=== PATIENT | female | born 1965 | race Caucasian/White ===

== ENCOUNTER 2019-01-17 21:07 | Emergency (ER) | payer OTHER, SELFPAY ==
[2019-01-17 21:41] VITALS: BP 141/80; PULSE 81; RESP 19; TEMP 36.7; O2SAT 99
--- NOTE | 2019-01-17 21:48 | DI.RAD.S_ITS ---
PROCEDURE: XR CHEST 1V INDICATIONS: chest pain TECHNIQUE: One view of the chest was acquired. COMPARISON: [facility], , CHEST 1 VIEW, 11/27/2013, 8:20. FINDINGS: Surgical changes and devices: None. Lungs and pleura: An incomplete inspiratory result is noted, causing a crowded appearance to the lung markings. No focal infiltrates are seen. No pneumothorax or significant pleural effusions are seen. Mediastinum: Mediastinal contours appear normal. Heart size is normal. Bones and chest wall: No suspicious bony lesions. Overlying soft tissues appear unremarkable. IMPRESSION: Portable chest within normal limits. Note: No significant discrepancy from the preliminary report. Dictated by: Juan Manrique M.D. on 01/18/2019 at 7:28 Approved by: Juan Manrique M.D. on 01/18/2019 at 7:28
--- NOTE | 2019-01-17 22:03 | ED.CHESTPAIN ---
HPI - Chest Pain General Chief Complaint: Chest Pain Stated Complaint: pain under the rib cage Time Seen by Provider: 01/17/19 22:03 Source: patient Mode of arrival: ambulatory Limitations: no limitations History of Present Illness HPI narrative: Patient is a 53-year-old female here for evaluation of left and right-sided upper abdomen/lower chest pain. She states that it was a fairly sudden onset. Lasted approximately 30 minutes with fairly sudden resolution. She has had her gallbladder removed in the past. The time of my evaluation patient was symptom free. She denies any other symptoms associated with it. Does not think that it got worse or better with palpation or movement or breathing. Related Data Allergies Allergy/AdvReac Type Severity Reaction Status Date / Time No Known Drug Allergies Allergy Verified 01/17/19 21:44 Review of Systems Constitutional Denies fever(s) and Denies headache(s) ENT Ears, Nose, Mouth, and Throat: Denies vertigo and Denies headache(s) Cardiovascular Reports chest pain, Denies edema, Denies palpitations and Denies dyspnea Respiratory Denies dyspnea Gastrointestinal Gastrointestinal: Denies abdominal pain, Denies nausea and Denies vomiting Genitourinary Denies dysuria Musculoskeletal Denies myalgias and Denies arthralgias Integumentary/Breasts Denies rash Neurologic Denies vertigo and Denies headache(s) Endocrine Denies palpitations Hematologic/Lymphatic Denies easy bruising FORMERLY [facility] Medical History Healthy adult (Acute) Surgical History History of cholecystectomy (Acute) Social History Smoking Status: Never smoker Social History Smoking Status: Never smoker Exam Initial Vital Signs Initial Vital Signs: Vital Signs Temperature 98.0 F 01/17/19 21:41 Pulse Rate 81 01/17/19 21:41 Respiratory Rate 19 01/17/19 21:41 Blood Pressure 141/80 H 01/17/19 21:41 Pulse Oximetry 99 01/17/19 21:41 Const General: cooperative, healthy appearing, comfortable, well developed, well groomed and No acute distress Orientation: alert, awake and oriented x3 HENMT Head: normal to inspection and normocephalic Resp Effort & Inspection: normal respiratory effort Auscultation: clear to auscultation bilaterally Cardio Rate: regular rate Rhythm: regular rhythm Pulses: radial pulses present GI Inspection: non-distended Palpation: soft and No firm Skin Lesions: no lesions Rashes: no rashes Neuro General: alert, awake and oriented x3 Cognition: normal cognition Speech: speech normal Gait: normal gait Extrem General: normal to inspection and capillary refill normal Psych Appearance: grossly normal and well kempt Scores GCS Byron coma scale eye opening: Spontaneous Annmarie coma scale verbal response: Orientated Byron coma scale motor response: Obey commands Annmarie coma scale total score: 15 HEART Score Heart Score history: Slightly Suspicious Heart Score EKG: Non-Specific repolarization disturbance Heart Score Age: 45-64 years old Heart Score risk factors: No known risk factors Heart Score troponin: < or = to normal limit Heart Score Total: 2 Course Orders Ordered: ED Orders 01/17/19 21:45 EKG-12 Lead Stat 01/17/19 21:48 XR chest 1V Stat 01/17/19 22:04 Complete Blood Count AUTO DIFF Stat Comprehensive Metabolic Panel Stat Lipase Stat Partial Thromboplastin Time Stat Prothrombin Time INR Stat Troponin & CK Cardiac Panel Stat Vital Signs - 8 hr 01/17/19 21:41 01/17/19 22:06 01/17/19 23:00 Temperature 98.0 F Pulse Rate 81 80 77 Respiratory Rate 19 18 15 Blood Pressure 141/80 H Blood Pressure [Left Arm] 134/69 118/66 Pulse Oximetry 99 98 97 01/18/19 00:52 Temperature 98.2 F Pulse Rate 78 Respiratory Rate 22 Blood Pressure 123/92 H Blood Pressure [Left Arm] Pulse Oximetry 96 MDM - Chest Pain Medical Records Data Attestation: I reviewed the patient's medical records. Lab Data Attestation: I reviewed the patient's lab results. Result diagrams: 01/17/19 22:04 01/17/19 22:04 Lab Results 01/17/19 01/17/19 01/17/19 Range/Units 22:04 22:04 22:04 WBC 10.0 (4.5-11.0) X10^3/uL RBC 4.41 (4.0-5.2) X10^6/uL Hgb 14.3 (12.0-16.0) g/dL Hct 42.9 (36-46) % MCV 97.2 (80-100) fL MCH 32.5 (26-34) PG MCHC 33.4 (30-36) % RDW 13.6 (11.6-14.8) % Plt Count 150 (150-400) X10^3/uL Neut % (Auto) 77.7 H (50-75) % Lymph % (Auto) 14.2 L (25-40) % [place] % (Auto) 5.6 (3-14) % Eos % (Auto) 1.4 L (2-4) % Baso % (Auto) 1.1 (0-2) % Neut # (Auto) 7800 H (8031-9784) /uL Lymph # (Auto) 1400 (6048-5525) /uL [place] # (Auto) 600 (0-900) /uL Eos # (Auto) 100 (0-450) /uL Baso # (Auto) 100 (0-100) /uL PT 10.6 (10.1-12.7) SECONDS INR 0.9 (0.9-1.3) APTT 27 (26.4-36.2) SECONDS Sodium 141 (137-145) mmol/L Potassium 3.9 (3.4-5.1) mmol/L Chloride 105 (98-107) mmol/L Carbon Dioxide 24 (22-32) mmol/L BUN 17 (7-17) mg/dL Creatinine 0.80 (0.52-1.04) mg/dL Estimated GFR > 60.0 (>60) mL/min BUN/Creatinine Ratio 21.3 (6-22) Glucose 125 H (70-100) mg/dL Calcium 9.0 (8.4-10.2) mg/dL Total Bilirubin 0.4 (0.2-1.3) mg/dL AST 195 H (14-36) IU/L ALT 137 H (9-52) IU/L Alkaline Phosphatase 116 (38-126) U/L Total Creatine Kinase 84 (30-135) U/L CK-MB (CK-2) TNP CK-MB (CK-2) Rel Index TNP Troponin I < 0.012 (0.01-0.034) ng/mL Total Protein 7.4 (6.3-8.2) g/dL Albumin 4.3 (3.5-5.0) g/dL Globulin 3.1 (1.7-4.1) g/dL Albumin/Globulin Ratio 1.4 (1.0-2.8) Lipase 292 (23-300) U/L Urine Dip Bedside Urine Glucose Negative Bedside Urine Bilirubin - Negative Bedside Urine Ketone - Negative Urine Specific [place] 1.030 Bedside Urine Occult Blood - Negative Bedside Urine pH 5.0 Bedside Urine Protein - Negative Bedside Urine Urobilinogen - Negative Bedside Urine Nitrite - Negative Bedside Urine Leukocytes - Negative Esterase Imaging Data Chest x-ray: Attestation: I personally reviewed and interpreted this imaging study as follows: My impression: No pneumonia, normal size heart, no acute abnormalities ECG Data Attestation: I personally reviewed and interpreted this ECG as follows: Prior ECG tracings: available for review Interpretation: Sinus rhythm Normal axis Normal QRS Ventricular rate is 78 Inverted T-waves V4 V5 V6 Comparison EKG dated 2014 Similar to today's EKG except does not have the inverted T-waves MDM Narrative Medical decision making narrative: Patient asymptomatic the time my evaluation. She is afebrile. Chest x-ray is unremarkable. Does have inverted T-waves laterally on the EKG which are new from an EKG in 2015 however her heart score is 2. Patient is asking to go home. She already has a follow-up appointment scheduled with her primary doctor on Saturday. We did discuss the importance of her talk with her primary doctor about stress test. She was given return precautions. She has had her gallbladder removed and the rest of her abdominal labs are unremarkable. Patient expressed understanding and agreement this plan. Discharge Plan Departure Patient Disposition: Home Clinical Impression: Atypical chest pain Discharge Date/Time: 01/18/19 00:54 Interventions: ED Discharge Assessment Last Done: 01/18/19 00:52 Instructions: DI for Atypical Chest Pain Activity Restrictions/Additional Instructions: Keep your appointment that you have scheduled on Saturday with your primary doctor. Return to the emergency department for any new or worsening symptoms. Discussed with your primary doctor the indications for a referral to have a stress test done.
[2019-01-17 22:06] VITALS: BP 134/69; PULSE 80; RESP 18; O2SAT 98
[2019-01-17 22:18] LABS: Add Manual Diff / Slide Review NO; Basophils Absolute Auto 100 /uL (0-100); Basophils Percent Auto 1.1 % (0-2); Eosinophils Absolute Auto 100 /uL (0-450); Eosinophils Percent Auto 1.4 % (2-4); Hematocrit 42.9 % (36-46); Hemoglobin 14.3 g/dL (12.0-16.0); Lymphocytes Absolute Auto 1400 /uL (1100-4500); Lymphocytes Percent Auto 14.2 % (25-40); Mean Corpuscular HGB Conc 33.4 % (30-36); Mean Corpuscular Hemoglobin 32.5 PG (26-34); Mean Corpuscular Volume 97.2 fL (80-100); Monocytes Absolute Auto 600 /uL (0-900); Monocytes Percent Auto 5.6 % (3-14); Neutrophils Absolute Auto 7800 /uL (1500-7000); Neutrophils Percent Auto 77.7 % (50-75); Platelet Count 150 X10^3/uL (150-400); Red Blood Cell Count 4.41 X10^6/uL (4.0-5.2); Red Cell Distribution Width 13.6 % (11.6-14.8)
[2019-01-17 22:26] LABS: INR 0.9 (0.9-1.3); Prothrombin Time 10.6 SECONDS (10.1-12.7)
[2019-01-17 22:28] LABS: PTT Partial Thromboplastin Tim 27 SECONDS (26.4-36.2)
[2019-01-17 22:32] LABS: Alanine Aminotransferase 137 IU/L (9-52); Albumin 4.3 g/dL (3.5-5.0); Albumin Globulin Ratio 1.4 (1.0-2.8); Alkaline Phosphatase 116 U/L (38-126); Aspartate Aminotransferase 195 IU/L (14-36); BUN Creatinine Ratio 21.3 (6-22); Bilirubin Total 0.4 mg/dL (0.2-1.3); Blood Urea Nitrogen 17 mg/dL (7-17); Carbon Dioxide 24 mmol/L (22-32); Chloride 105 mmol/L (98-107); Creatine Kinase 84 U/L (30-135); Estimated Glomerular Filt Rate > 60.0 mL/min (>60); Globulin 3.1 g/dL (1.7-4.1); Glucose 125 mg/dL (70-100); HEMOLYSIS < 15 (0-50); Lipase 292 U/L (23-300); Potassium 3.9 mmol/L (3.4-5.1); Sodium 141 mmol/L (137-145); Total Protein 7.4 g/dL (6.3-8.2)
[2019-01-17 22:43] LABS: Troponin I < 0.012 ng/mL (0.01-0.034)
[2019-01-17 23:00] VITALS: BP 118/66; PULSE 77; RESP 15; O2SAT 97
[2019-01-18 00:52] VITALS: BP 123/92; PULSE 78; RESP 22; TEMP 36.8; O2SAT 96
== END 2019-01-18 00:54 | disposition home or self-care (01) ==
PROVIDERS: Emergency Provider Emergency Medicine
DX: R07.89 Other chest pain (principal)
CPT/HCPCS: 36591; 71045; 80053; 81003; 82550; 83690; 84484; 85025; 85610; 85730; 93005; 93010; 99283; 99285

== ENCOUNTER 2021-01-01 09:34 | Emergency (ER) | payer OTHER, SELFPAY ==
[2021-01-01 09:40] VITALS: O2SAT 95
[2021-01-01 09:41] VITALS: BP 188/92; PULSE 75; O2SAT 97
[2021-01-01 09:44] VITALS: BP 188/92; PULSE 74; RESP 18; TEMP 37.1; O2SAT 96; BMI 40.9
--- NOTE | 2021-01-01 09:53 | ED_ITS ---
HPI - General Adult General Chief complaint: Ear Stated complaint: SUSPECTS RIGHTSIDE EAR INFECTION Time Seen by Provider: 01/01/21 09:46 Source: patient Mode of arrival: Family Vehicle Limitations: no limitations History of Present Illness HPI narrative: Patient is a 55-year-old female here for evaluation of right- sided ear discomfort. States it has been there for the past 3 or 4 days and worsening over the past 24 hours. She states she has a fullness in the right ear. She does have pain along the right side of her neck. No left ear pain. No vision changes. No sore throat. Related Data Previous Rx's Medication Instructions Recorded ciprofloxacin-dexamethasone 4 drp EAR-RIGHT TID 7 Days #7.5 ml 01/01/21 [Ciprodex] Allergies Allergy/AdvReac Type Severity Reaction Status Date / Time No Known Drug Allergies Allergy Verified 01/17/19 21:44 Review of Systems Constitutional Constitutional: Denies fever(s) and Denies headache(s) Eyes Eyes: Denies change in vision ENT Ears, Nose, Mouth, and Throat: Denies headache(s) and Reports sore throat Comments: Right-sided ear pain Cardiovascular Cardiovascular: Denies chest pain and Denies dyspnea Respiratory Respiratory: Denies dyspnea Gastrointestinal Gastrointestinal: Denies abdominal pain, Denies nausea and Denies vomiting Integumentary/Breasts Skin/Breast: Denies rash Neurologic Neurologic: Denies behavioral changes and Denies headache(s) Psychiatric Psychiatric: Denies behavioral changes Hematologic/Lymphatic On Anticoagulants: No Allergic/Immunologic Allergic/Immunologic: Denies urticaria Patient History Medical History Healthy adult Surgical History History of cholecystectomy Social History Smoking Status: Never smoker Smoking Status: Never smoker alcohol intake frequency: 3 or more drinks per day Substance Use Type: does not use Exam Initial Vital Signs Initial Vital Signs: Vital Signs Temperature 98.8 F 01/01/21 09:44 Pulse Rate 74 01/01/21 09:44 Respiratory Rate 18 01/01/21 09:44 Blood Pressure 188/92 H 01/01/21 09:44 Pulse Oximetry 96 01/01/21 09:44 Const General: cooperative, healthy appearing, comfortable and well developed Limitations: mental status not altered HENIL Head: normal to inspection and normocephalic Ears: TM normal on the right, TM normal on the left and EAC abnormal erythema on the right, edema on the right and EAC tenderness on the right; no foreign body and no otic discharge Nose: external nose normal Throat: posterior oropharynx normal Neck Lymphatic: lymphadenopathy (Right anterior cervical) Resp Effort & Inspection: normal respiratory effort Cardio Rate: regular rate Skin Lesions: no lesions Rashes: no rashes Neuro General: patient alert, patient awake and patient oriented x3 Extrem General: normal to inspection and capillary refill normal Psych Appearance: grossly normal and well kempt Course Vital Signs Vital signs: Vital Signs - 8 hr 01/01/ 09:44 Temperature 98.8 F Pulse Rate 74 Respiratory Rate 18 Blood Pressure 188/92 H Pulse Oximetry 96 Medical Decision Making MDM Narrative Medical decision making narrative: Left-sided here exam unremarkable. Right- sided ear exam consistent with otitis externa. Low suspicion for mastoiditis given her exam. Will place on antibiotic drops. She was given a prescription for this. She was given return precautions and follow-up instructions. She expressed understanding and agreement. Discharge Plan Departure Patient Disposition: Home Clinical Impression: Otitis externa Instructions: How to Instill Ear Drops, DI for Otitis Externa Activity Restrictions/Additional Instructions: Use the antibiotic ear drops as directed. You can continued state Tylenol/ibuprofen for discomfort. Return to the emergency department for any new or worsening symptoms Prescriptions: New ciprofloxacin-dexamethasone [Ciprodex] 0.3-0.1 % drops,suspension 4 drp EAR-RIGHT TID 7 Days Qty: 7.5 RF: 0
[2021-01-01 10:02] VITALS: BP 189/88
--- NOTE | 2021-01-01 11:23 | PC.NURSE ---
dr. phan looked in patient's ear prior to discharge.
== END 2021-01-01 10:02 | disposition home or self-care (01) ==
PROVIDERS: Emergency Provider Emergency Medicine; PCP Family Medicine
DX: H60.91 Unspecified otitis externa, right ear (principal)
CPT/HCPCS: 99281

== ENCOUNTER 2022-05-01 09:21 | Emergency (ER) | payer OTHER, SELFPAY ==
[2022-05-01 09:33] VITALS: BP 227/115; PULSE 70; RESP 18; TEMP 36.7; O2SAT 99; BMI 31.7
--- NOTE | 2022-05-01 09:38 | DI.RAD.S_ITS ---
PROCEDURE: XR FOOT LT MIN 3V INDICATIONS: r/o fx TECHNIQUE: 3 views of the foot were acquired. COMPARISON: None. FINDINGS: Bones: No fractures or dislocations. No suspicious bony lesions. Plantar calcaneal spur. Soft tissues: No tibiotalar joint effusion. Achilles tendon appears normal. IMPRESSION: No evidence acute bony abnormality of the left ankle. If clinical suspicion and/or symptoms persist, further assessment with repeat plain films, or advanced imaging (e.g., CT, MRI, or bone scan) may be helpful for further assessment. Dictated by: Tanvir Hinojosa M.D. on 05/01/2022 at 10:05 Approved by: Tanvir Hinojosa M.D. on 05/01/2022 at 10:06
--- NOTE | 2022-05-01 10:09 | ED_ITS ---
HPI - Extremity Injury (Lower) General Chief Complaint: Extremity Injury, Lower Stated Complaint: fell and injured left foot Time Seen by Provider: 05/01/22 09:57 Source: patient Mode of arrival: Ambulatory History of Present Illness HPI Narrative: This is a 56-year-old female with complaint fall. Patient states she sort of tripped over herself she has an abrasion on the dorsum of her left foot and has pain and swelling of the 4th and 5th toes over the metatarsals on across the dorsum in the area of abrasion. Patient states that she did have a Silveira fracture in the past. This was some time ago it has since healed. Patient states she has some pain with weight-bearing but is able to weightbear. She states her toes were extended backwards when she had her fall. She denies other injuries. She denies any new numbness, tingling or weakness. Denies any other issues or concerns today. Patient states tetanus is up-to-date. Related Data Allergies Allergy/AdvReac Type Severity Reaction Status Date / Time No Known Drug Allergies Allergy Verified 01/17/19 21:44 Review of Systems Review of Systems ROS Unobtainable: All systems reviewed & are unremarkable except as noted in HPI and below Patient History Medical History (Updated 05/01/22 @ 10:34 by Margarita Cruz DO) Healthy adult Surgical History History of cholecystectomy Social History Smoking Status: Never smoker Smoking Status: Never smoker alcohol intake frequency: 3 or more drinks per day Substance Use Type: does not use Exam Narrative Exam Narrative: GENERAL: Alert and oriented x three, mild distress. HEENT: Head normocephalic, atraumatic, EOMI, pupils reactive, face symmetric, moist mucous membranes NECK: Supple, full range of motion EXTREMITIES: Normal range of motion, no clubbing. Patient has ecchymosis of the 5th and 4th digits on the left with some mild ecchymosis on the lateral edge distally, patient has some mild tenderness over the 4th metatarsal. She is nontender over the 5th metatarsal with no other bony tenderness appreciated. She has normal plantar dorsiflexion. Patient has 2.5 cm irregular abrasion over the dorsum of the foot. No warmth, erythema or drainage is appreciated. Patient has 2+ dorsalis pedis with cap refill less than 2 seconds in all 5 toes. Neurovascularly intact NEUROLOGICAL: Cranial nerves II through XII grossly intact. Moving all extremities SKIN: Warm, dry, no petechiae, no rashes or lesions otherwise noted. Initial Vital Signs Initial Vital Signs: Vital Signs Temperature 98.1 F 05/01/22 09:33 Pulse Rate 70 05/01/22 09:33 Respiratory Rate 18 05/01/22 09:33 Blood Pressure 227/115 H 05/01/22 09:33 Pulse Oximetry 99 05/01/22 09:33 Oxygen Delivery Method 05/01/22 09:33 Course Orders Ordered: ED Orders 05/01/22 09:30 COVID19 -Nasal RAPID/Pre-Proc Stat 05/01/22 09:38 XR foot LT min 3V Stat Vital Signs Vital signs: Vital Signs - 8 hr 05/01/22 09:33 Temperature 98.1 F Pulse Rate 70 Respiratory Rate 18 Blood Pressure 227/115 H Pulse Oximetry 99 Oxygen Delivery Method Room Air MDM - Extremity Injury (Lower) Lab Data Labs: Lab Results 05/01/22 Range/Units 09:30 SARS-CoV-2 (PCR) Negative (Negative) Imaging Data Extremity x-ray #1: Radiologist's Impression: [address] [address] XRay Report Signed Patient: Tracie Cintron MR#: [id number] : 1965 Acct:[id number] Age/Sex: 56 / F Date of Service: 05/01/22 Loc: ED Accession Number: [id number] ?? Procedure: XR foot LT min 3V Ordering Provider: Margarita Cruz D.O. PROCEDURE:? XR FOOT LT MIN 3V ? INDICATIONS:? r/o fx ? TECHNIQUE:? 3 views of the foot were acquired.? ? COMPARISON:? None. ? FINDINGS:? ? Bones:? No fractures or dislocations.? No suspicious bony lesions.? Plantar calcaneal spur. ? Soft tissues:? No tibiotalar joint effusion.? Achilles tendon appears normal.? ? ? IMPRESSION:? No evidence acute bony abnormality of the left ankle. ? If clinical suspicion and/or symptoms persist, further assessment with repeat plain films, or advanced imaging (e.g., CT, MRI, or bone scan) may be helpful for further assessment. ? Dictated by: Tanvir Hinojosa M.D. on 05/01/2022 at 10:05 ? ? Approved by: Tanvir Hinojosa M.D. on 05/01/2022 at 10:06?? MDM Narrative Medical decision making narrative: This is a 56-year-old female with abrasion and ecchymosis over the dorsum of her foot and toes. Patient had a trip and fall, she is able to weightbear although has some discomfort. X-ray does not show acute changes. Patient defers any splint or crutches. Plan for repeat imaging in 7-10 days if persistent symptoms and wound care for abrasion on her foot. Discharge Plan Departure Patient Disposition: Home Clinical Impression: Abrasion foot/toe, Contusion of foot Instructions: DI for Foot Sprain Activity Restrictions/Additional Instructions: Please follow-up in 7-10 days for repeat evaluation and possibly imaging if your symptoms are not improving. Your imaging today does not show any signs of fracture or breaks to the bone. Wound Care: Keep wound(s) clean and dry. Wash daily with soap and water only. Do not use over the counter products (alcohol or peroxide)on the wounds unless instructed by a physician, you can use triple antibiotic ointment to the affected area twice daily. You may weightbear as tolerated OK to use ice pack on the affected body part. Use for 15-20 minutes each time, for 5-6x per day. If you develop worsening pain, numbness, tingling, discoloration of the affected body part, fevers, redness or purulent discharge either see your doctor for an urgent re-assessment, or return to the Emergency Department. Return to the Emergency Department for any new or worsening symptoms. Referrals: Harman Webster MD [Primary Care Provider] - Visit Report Forms: Patient Portal/API
[2022-05-01 10:31] LABS: COVID19 -Nasal RAPID Negative (Negative)
[2022-05-01 10:43] VITALS: BP 184/83; PULSE 67; RESP 18; O2SAT 98
== END 2022-05-01 10:44 | disposition home or self-care (01) ==
PROVIDERS: Emergency Provider Emergency Medicine; PCP Family Medicine
DX: S90.415A Abrasion, left lesser toe(s), initial encounter (principal); S90.32XA Contusion of left foot, initial encounter; W01.0XXA Fall on same level from slipping, tripping and stumbling without subsequent striking against object, initial encounter; Z20.822 Contact with and (suspected) exposure to COVID-19
CPT/HCPCS: 73630; 87635; 99281; 99283; C9803

== ENCOUNTER 2024-08-30 09:30 | Emergency (ER) | payer OTHER, SELFPAY ==
[2024-08-30] VITALS (11 sets, daily range): BP systolic 161–178; BP diastolic 76–109; PULSE 59–71; RESP 14–25; TEMP 36.8; O2SAT 97–99; BMI 33.9
--- NOTE | 2024-08-30 10:42 | EKG_ITS ---
[address] [address] [place] [address] Test Date: 2024-08-30 Pat Name: Tracie Cintron Department: [facility] Room: Gender: Female Cardiothoracic Anesthesia Technician: temo : 1965 Requested By: Order Number: [id number] Reading MD: Cruz Victoria Measurements Intervals [place] Rate: 60 P: 53 KS: 136 QRS: 0 QRSD: 98 T: -11 QT: 464 QTc: 464 Interpretive Statements Normal sinus rhythm Possible Left atrial enlargement Nonspecific T wave abnormality Electronically Signed On 08-31-2024 11:16:41 PST by Cruz Victoria
--- NOTE | 2024-08-30 10:52 | DI.RAD.S_ITS ---
PROCEDURE: XR CHEST 1V INDICATIONS: upper abd pain TECHNIQUE: One view of the chest was acquired. COMPARISON: [facility], CR, XR CHEST 1V, 01/17/2019, 23:01. FINDINGS: Surgical changes and devices: None. Lungs and pleura: Lungs are clear. No pleural effusions or pneumothorax. Mediastinum: Mediastinal contours appear normal. Heart size is normal. Bones and chest wall: No suspicious bony lesions. Overlying soft tissues appear unremarkable. IMPRESSION: No acute cardiopulmonary abnormality is seen. Approved by: Mary Mackenzie M.D.,Ph.D. on 08/30/2024 at 11:35
--- NOTE | 2024-08-30 10:58 | ED_ITS ---
HPI - Abdominal Pain <Tonya Caban PA-C - Last Filed: 08/30/24 20:27> General Chief Complaint: Abdominal Pain Stated Complaint: Upper ABD px nausea vomitting Time Seen by Provider: 08/30/24 10:49 Source: patient Mode of arrival: Ambulatory History of Present Illness HPI narrative: Ms. Cintron is a very pleasant 59-year-old female with a past medical history of cholecystectomy who presents to the emergency department for diffuse abdominal pain and nausea/vomiting since last night around 7:00 p.m. Patient reports experiencing this pain about 1 week ago but it resolved after about 1 hour. Patient states she did have similar symptoms multiple years ago however the pain was more in her chest at that time she was admitted overnight and had a negative cardiac workup. Reports that the pain started after dinner last night however when she had the pain 1 week ago it was in the morning when she had not yet eaten anything. Describes the pain as spastic in nature starting across the top of her abdomen/epigastric region and slowly radiating down the abdomen on both sides. This pain is associated with nausea and she had about 4 episodes of vomiting last night and 1 episode of nonbloody vomiting this morning. States it at this time the pain is lower in the abdomen. Denies fevers, chills, chest pain, shortness of breath, dysuria, hematuria, diarrhea, constipation, melena, hematochezia. She denies any drug use or smoking. She does admit to drinking about a glass of wine every night. Pain significantly improved at this time. Related Data Previous Rx's Medication Instructions Recorded ondansetron 4 mg disintegrating 4 mg PO Q8H PRN nausea and 08/30/24 tablet vomiting #14 tabs Allergies Allergy/AdvReac Type Severity Reaction Status Date / Time No Known Drug Allergies Allergy Verified 01/17/19 21:44 Review of Systems <Tonya Caban PA-C - Last Filed: 08/30/24 20:27> Review of Systems ROS Unobtainable: All systems reviewed & are unremarkable except as noted in HPI and below Patient History <Tonya Caban PA-C - Last Filed: 08/30/24 20:27> Medical History (Updated 08/30/24 @ 15:18 by Tonya Caban PA-C) Healthy adult Surgical History History of cholecystectomy Social History Smoking Status: Never smoker Smoking Status: Never smoker alcohol intake frequency: 3 or more drinks per day Alcohol type: wine Exam <Tonya Caban PA-C - Last Filed: 08/30/24 20:27> Narrative Exam Narrative: GENERAL: 59 year old patient appears stated age. Well-developed patient, in no acute distress. HEAD: Atraumatic. Normocephalic. NECK: Trachea midline. Cervical ROM intact. CARDIOVASCULAR: Regular rate and rhythm. RESPIRATORY: ?Nonlabored respirations. ?Speaking in clear, full sentences. ?Clear to auscultation. Breath sounds equal bilaterally. No wheezes, rales, or rhonchi. ? GASTROINTESTINAL: Abdomen soft, non-tender, nondistended. Normal bowel sounds. No CVA tenderness. EXTREMITIES: No edema or joint tenderness. BACK: Nontender without deformity or crepitance. No flank tenderness. NEURO: AOx3. ?Clear speech. ?Moves all 4 extremities appropriately. SKIN: No rash or erythema of visible areas Initial Vital Signs Initial Vital Signs: Vital Signs Temperature 98.2 F 08/30/24 09:49 Pulse Rate 64 08/30/24 09:49 Respiratory Rate 16 08/30/24 09:49 Pulse Oximetry 99 08/30/24 09:49 Oxygen Delivery Method Room Air 08/30/24 09:49 <Aureliano Castillo MD - Last Filed: 08/30/24 20:32> Initial Vital Signs Initial Vital Signs: Vital Signs Temperature 98.2 F 08/30/24 09:49 Pulse Rate 64 08/30/24 09:49 Respiratory Rate 16 08/30/24 09:49 Pulse Oximetry 99 08/30/24 09:49 Oxygen Delivery Method Room Air 08/30/24 09:49 Scores <Tonya Caban PA-C - Last Filed: 08/30/24 20:27> HEART Score Heart Score history: Slightly Suspicious Heart Score EKG: Normal Heart Score Age: 45-64 years old Heart Score risk factors: 1-2 risk factors Heart Score troponin: < or = to normal limit Heart Score Total: 2 <Aureliano Castillo MD - Last Filed: 08/30/24 20:32> HEART Score Heart Score Total: 2 Course <Tonya Caban PA-C - Last Filed: 08/30/24 20:27> Orders Ordered: ED Orders 08/30/24 12:20 Ammonia (NH3) Stat Troponin I Stat 08/30/24 12:42 MRCP [MR abdomen wo/w con] Stat Discontinued Medications Aspirin (Aspirin 81 Mg Chew Tab) 324 mg PO NOW ONE Stop: 08/30/24 11:08 Last Admin: 08/30/24 11:37 Dose: 324 mg Documented By: EDU Ondansetron HCl (Ondansetron 4 Mg/2 Ml Inj) 4 mg IV NOW ONE Stop: 08/30/24 11:08 Last Admin: 08/30/24 11:37 Dose: 4 mg Documented By: EDU Consultations Consultation #1: Discussed case with general surgeon application spec Dr. Bryan. He states that if the patient does have a common duct stone on MRCP she will need to be transferred somewhere with ERCP. Time: 12:48 Vital Signs Vital signs: Vital Signs - 8 hr 08/30/24 13:35 08/30/24 13:41 08/30/24 13:41 Pulse Rate 71 64 Respiratory Rate 24 Blood Pressure 178/84 H Pulse Oximetry 98 98 Oxygen Delivery Method 08/30/24 14:00 08/30/24 14:30 08/30/24 15:29 Pulse Rate 61 61 60 Respiratory Rate 24 22 14 Blood Pressure 170/76 H Pulse Oximetry 97 98 97 Oxygen Delivery Method Room Air <Aureliano Castillo MD - Last Filed: 08/30/24 20:32> Orders Ordered: ED Orders 08/30/24 12:20 Ammonia (NH3) Stat Troponin I Stat 08/30/24 12:42 MRCP [MR abdomen wo/w con] Stat Discontinued Medications Aspirin (Aspirin 81 Mg Chew Tab) 324 mg PO NOW ONE Stop: 08/30/24 11:08 Last Admin: 08/30/24 11:37 Dose: 324 mg Documented By: EDU Ondansetron HCl (Ondansetron 4 Mg/2 Ml Inj) 4 mg IV NOW ONE Stop: 08/30/24 11:08 Last Admin: 08/30/24 11:37 Dose: 4 mg Documented By: EDU Vital Signs Vital signs: Vital Signs - 8 hr 08/30/24 13:35 08/30/24 13:41 08/30/24 13:41 Pulse Rate 71 64 Respiratory Rate 24 Blood Pressure 178/84 H Pulse Oximetry 98 98 Oxygen Delivery Method 08/30/24 14:00 08/30/24 14:30 08/30/24 15:29 Pulse Rate 61 61 60 Respiratory Rate 24 22 14 Blood Pressure 170/76 H Pulse Oximetry 97 98 97 Oxygen Delivery Method Room Air MDM - Abdominal Pain <Tonya Caban PA-C - Last Filed: 08/30/24 20:27> Medical Records Attestation: I reviewed the patient's medical records. Lab Data 08/30/24 10:40 08/30/24 10:40 Labs: Lab Results 08/30/24 08/30/24 Range/Units 10:40 12:20 WBC 8.2 (4.5-11.0) X10^3/uL RBC 4.34 (4.0-5.2) X10^6/uL Hgb 14.5 (12.0-16.0) g/dL Hct 43.3 (36-46) % MCV 99.9 (80-100) fL MCH 33.4 (26-34) PG MCHC 33.4 (30-36) % RDW 13.5 (11.6-14.8) % Plt Count 167 (150-400) X10^3/uL Neut % (Auto) 82.0 H (50-75) % Lymph % (Auto) 8.4 L (25-40) % [place] % (Auto) 8.8 (3-14) % Eos % (Auto) 0.4 L (2-4) % Baso % (Auto) 0.4 (0-2) % Neut # (Auto) 6700 (8954-3799) /uL Lymph # (Auto) 700 L (1977-2612) /uL [place] # (Auto) 700 (0-900) /uL Eos # (Auto) 0 (0-450) /uL Baso # (Auto) 0 (0-100) /uL Sodium 138 (137-145) mmol/L Potassium 3.8 (3.4-5.1) mmol/L Chloride 104 (98-107) mmol/L Carbon Dioxide 28 (22-32) mmol/L BUN 11 (7-17) mg/dL Creatinine 0.68 (0.52-1.04) mg/dL Estimated GFR > 60 (>60) mL/min BUN/Creatinine Ratio 16.2 (6-22) Glucose 132 H (80-110) mg/dL Calcium 9.2 (8.4-10.2) mg/dL Total Bilirubin 2.5 H (0.2-1.3) mg/dL AST 691 H (14-36) IU/L ALT 675 H (<35) IU/L Alkaline Phosphatase 189 H (38-126) U/L Ammonia < 9 L (9-30) umol/L Total Creatine Kinase 79 (30-135) U/L Troponin I < 0.012 < 0.012 (0.01-0.034) ng/mL Total Protein 7.2 (6.3-8.2) g/dL Albumin 4.3 (3.5-5.0) g/dL Globulin 2.9 (1.7-4.1) g/dL Albumin/Globulin Ratio 1.5 (1.0-2.8) Lipase 128 (23-300) U/L Point of care testing: Urine Dip Bedside Urine Glucose Negative Bedside Urine Bilirubin - Negative Bedside Urine Ketone - Negative Urine Specific [place] 1.005 Bedside Urine Occult Blood - Negative Bedside Urine pH 6.5 Bedside Urine Protein +/- 15 Bedside Urine Urobilinogen - Negative Bedside Urine Nitrite - Negative Bedside Urine Leukocytes +/- [address] scan - abdomen/pelvis: Radiologist's Impression: PROCEDURE: CT ABDOMEN PELVIS W CON INDICATIONS: diffuse abd pain w vomiting; no gallbladder TECHNIQUE: After the administration of intravenous contrast, axial sections acquired from the lung bases to the pubic symphysis. Coronal and sagittal reformats were performed. For radiation dose reduction, the following was used: automated exposure control, adjustment of mA and/or kV according to patient size. COMPARISON: None. FINDINGS: Image quality: Diagnostic. Lower Chest: No significant findings. ABDOMEN: Liver: No solid mass. Gallbladder: Surgically absent Biliary ducts: No biliary dilation. Pancreas: No ductal dilation. Spleen: Size is within normal limits. Adrenal Glands: No adrenal nodules. Kidneys and Ureters: No hydronephrosis. No solid mass. No complex renal cystic lesion which requires follow up. Nonobstructing left inferior pole 2-3 mm calculus. Stomach and Bowel: Normal colonic caliber, without significant wall thickening. Appendix is not definitively visualized, however there are no inflammatory changes in the right lower quadrant to suggest acute appendicitis. No significant diverticular disease. Peritoneum: No abnormal intraperitoneal fluid. No free air. Ventral Wall: No significant ventral hernia. Abdominal Nodes: No retroperitoneal or mesenteric adenopathy by size criteria. Vessels: Aorta and inferior vena cava are normal in size. PELVIS: Pelvic Organs: The left adnexal simple appearing cystic structure measuring 2.9 cm (2/123) Bladder: No bladder wall thickening, accounting for underdistention. Pelvic Nodes: No enlarged lymph nodes. Miscellaneous: No inguinal hernias are seen. Bones: No aggressive osseous abnormality. IMPRESSION: No acute process in the abdomen or pelvis to explain patient's symptoms. Additional findings as above. MRCP: Radiologist's Impression: PROCEDURE: MR ABDOMEN WO/W CON INDICATIONS: N/V/Elevated LFTs; hx cholecystectomy 2001 TECHNIQUE: Coronal HASTE, axial 2D FLASH in- and [id number]; axial breath-hold T2 FSE. Dynamic axial VIBE during the administration of contrast; post-contrast coronal VIBE or 2D FLASH with fat saturation from the hepatic dome to the iliac crests. Optional diffusion weighted imaging and ADC may be performed. COMPARISON: [facility], CR, XR CHEST 1V, 08/30/2024, 11:02. [facility], CT, CT ABDOMEN PELVIS W CON, 08/30/2024, 11:37. FINDINGS: Image quality: This examination is limited by involuntary motion artifact. Lung bases: Unremarkable. Liver: No solid mass. No enhancing liver lesions are seen. The liver is enlarged, with the right liver measuring 24.5 cm craniocaudal. No significant loss of signal can be seen on the out of phase imaging compared to the in phase imaging. Gallbladder: Removed. Biliary ducts: The common bile duct measures 1 cm, which is considered to be within normal limits for a post cholecystectomy patient. The distal in the common bile duct demonstrates normal tapering, without a filling defect. Pancreas: No ductal dilation. Spleen: Size is within normal limits. Adrenal Glands: No adrenal nodules. Kidneys and Ureters: No hydronephrosis. No solid mass. No complex renal cystic lesion which requires follow up. Stomach and Bowel: Normal colonic caliber, without significant wall thickening. Peritoneum: No abnormal intraperitoneal fluid. No free air. Ventral Wall: No hernia. Abdominal Nodes: No retroperitoneal or mesenteric adenopathy by size criteria. Vessels: Aorta and inferior vena cava are normal in size. Bones: No aggressive osseous abnormality. Scattered foci are seen, which are hyperintense on T1-weighted and T2-weighted imaging, which are most consistent with benign vertebral body hemangiomas. IMPRESSION: Hepatomegaly, without significant additional liver abnormality. Status post cholecystectomy, without biliary dilatation. No filling defects are seen within the bile ducts. ECG Data Interpretation: Reviewed 01/17/2019 ED note which comments on inverted T-waves in V4 V5 V6. ECG today reveals same inversions in V4 and V5. Rate 60 rhythm regular. MDM Narrative Medical decision making narrative: 59-year-old female with a past medical history of cholecystectomy who presents to the emergency department for diffuse abdominal pain and nausea/vomiting since last night around 7:00 p.m. contributes to the history. Differential diagnosis includes but is not limited to gastritis, pancreatitis, electrolyte abnormality, atypical ACS/NV, appendicitis, diverticulitis, irritable bowel syndrome, etc. On exam the patient is in no acute distress, nontoxic-appearing, all vital signs within normal limits. At this time her pain has improved significantly in his only very mild. Abdomen does not have reproducible tenderness but she does have subjective pain throughout the abdomen worse in the epigastric region. We will proceed with abdominal/cardiac workup for possible atypical angina versus abdominal pathology. We will treat with aspirin and Zofran. Labs reveal normal WBC count 8.2. Hemoglobin 14.5. Hematocrit 43.3. Sodium 138, potassium 3.8, chloride 104. BUN 11 creatinine 0.68. Glucose 132. AST elevated 691, ALT elevated 675, alk phos elevated 189. Total bilirubin elevated at 2.5. Troponin negative x 2. heart score 2. ECG NSR rate 60. Lipase neg 128. 1235: CT scan reveals no acute abnormalities. Discussed case with attending ER physician including abnormal labs and patient's symptoms. Recommends proceeding with MRCP which patient is agreeable to. Discussed case with General surgery on-call who agrees with MRCP. MRCP reveals hepatomegaly without significant additional liver abnormality. There is no biliary dilatation and no filling defects. Patient's symptoms remained improved during her ED stay. We did discuss all of the results of her CT scan and her MRCP including incidental finding of adnexal cyst on CT scan. Recommended outpatient follow up with GI for further evaluation of hepatomegaly and transaminitis. Recommended cessation from alcohol, decrease fatty foods in diet. Patient has no history of hepatitis, IV drug use or travel outside the country. She is stable for further outpatient follow up. Abdominal exam benign on serial examinations. She is tolerating p.o. in the ER. She was prescribed Zofran if needed for nausea. We discussed ER return precautions and follow up with PCP. Both her and her verbalized understanding of all information and she is stable for discharge at this time. <Aureliano Castillo MD - Last Filed: 08/30/24 20:32> Lab Data Labs: Lab Results 08/30/24 08/30/24 Range/Units 10:40 12:20 WBC 8.2 (4.5-11.0) X10^3/uL RBC 4.34 (4.0-5.2) X10^6/uL Hgb 14.5 (12.0-16.0) g/dL Hct 43.3 (36-46) % MCV 99.9 (80-100) fL MCH 33.4 (26-34) PG MCHC 33.4 (30-36) % RDW 13.5 (11.6-14.8) % Plt Count 167 (150-400) X10^3/uL Neut % (Auto) 82.0 H (50-75) % Lymph % (Auto) 8.4 L (25-40) % [place] % (Auto) 8.8 (3-14) % Eos % (Auto) 0.4 L (2-4) % Baso % (Auto) 0.4 (0-2) % Neut # (Auto) 6700 (9723-6986) /uL Lymph # (Auto) 700 L (5104-0458) /uL [place] # (Auto) 700 (0-900) /uL Eos # (Auto) 0 (0-450) /uL Baso # (Auto) 0 (0-100) /uL Sodium 138 (137-145) mmol/L Potassium 3.8 (3.4-5.1) mmol/L Chloride 104 (98-107) mmol/L Carbon Dioxide 28 (22-32) mmol/L BUN 11 (7-17) mg/dL Creatinine 0.68 (0.52-1.04) mg/dL Estimated GFR > 60 (>60) mL/min BUN/Creatinine Ratio 16.2 (6-22) Glucose 132 H (80-110) mg/dL Calcium 9.2 (8.4-10.2) mg/dL Total Bilirubin 2.5 H (0.2-1.3) mg/dL AST 691 H (14-36) IU/L ALT 675 H (<35) IU/L Alkaline Phosphatase 189 H (38-126) U/L Ammonia < 9 L (9-30) umol/L Total Creatine Kinase 79 (30-135) U/L Troponin I < 0.012 < 0.012 (0.01-0.034) ng/mL Total Protein 7.2 (6.3-8.2) g/dL Albumin 4.3 (3.5-5.0) g/dL Globulin 2.9 (1.7-4.1) g/dL Albumin/Globulin Ratio 1.5 (1.0-2.8) Lipase 128 (23-300) U/L Point of care testing: Urine Dip Bedside Urine Glucose Negative Bedside Urine Bilirubin - Negative Bedside Urine Ketone - Negative Urine Specific [place] 1.005 Bedside Urine Occult Blood - Negative Bedside Urine pH 6.5 Bedside Urine Protein +/- 15 Bedside Urine Urobilinogen - Negative Bedside Urine Nitrite - Negative Bedside Urine Leukocytes +/- 15 Esterase Discharge Plan Departure Patient Disposition: Home Clinical Impression: Hepatomegaly, Transaminitis, Cyst of left ovary Nausea & vomiting Qualifiers: Vomiting type: unspecified Qualified Code(s): R11.2 - Nausea with vomiting, unspecified Instructions: DI for Nausea -- Adult, DI for Nonalcoholic Fatty Liver Disease Activity Restrictions/Additional Instructions: Dear Ms. Cintron, Today you were evaluated for abdominal pain and nausea and vomiting. He completed cardiac and abdominal lab work, chest x-ray, abdominal CT scan and abdominal MRCP. Your workup revealed elevation in liver enzymes and imaging revealed hepatomegaly which is enlargement of the liver with no blockages in the biliary ducts. It is very important that you follow up with a gastrointestinal doctor for further evaluation. Please avoid alcohol, fatty foods, excessive Tylenol. Please use the prescribed Zofran if needed for nausea. Return to the ER if you develop any new or concerning symptoms. You may call [facility] in [place] at [phone] to schedule an appointment. Please follow up with your primary care doctor within the next 2-3 days for ER follow-up. (If you do not have a PCP you can call [phone]. ?to schedule an appointment with an [facility] Primary Care Provider) IF YOU DEVELOP ANY NEW OR WORSENING SYMPTOMS, RETURN TO THE ER! Please read the attached instructions, they highlight more specific treatments and interventions for you at home. Thank you for letting me participate in your care, Tonya Caban PA-C Prescriptions: New ondansetron 4 mg tablet,disintegrating 4 mg PO Q8H PRN (Reason: nausea and vomiting) Qty: 14 0RF Referrals: Harman Webster MD [Primary Care Provider] - Stand Alone Forms: Patient Portal/API/Survey ED Sign-out <Aureliano Castillo MD - Last Filed: 08/30/24 20:32> Cosign ED Attending Cosignature Attestation: I was immediately available in the department for consultation. This documentation has been reviewed and I agree with assessment and plan. Supervised by Aureliano Castillo MD
[2024-08-30 10:59] LABS: Alanine Aminotransferase 675 IU/L (<35); Albumin 4.3 g/dL (3.5-5.0); Albumin Globulin Ratio 1.5 (1.0-2.8); Alkaline Phosphatase 189 U/L (38-126); Aspartate Aminotransferase 691 IU/L (14-36); BUN Creatinine Ratio 16.2 (6-22); Bilirubin Total 2.5 mg/dL (0.2-1.3); Blood Urea Nitrogen 11 mg/dL (7-17); Calcium 9.2 mg/dL (8.4-10.2); Carbon Dioxide 28 mmol/L (22-32); Chloride 104 mmol/L (98-107); Estimated Glomerular Filt Rate > 60 mL/min (>60); Globulin 2.9 g/dL (1.7-4.1); Glucose 132 mg/dL (80-110); HEMOLYSIS < 15 (0-50); Lipase 128 U/L (23-300); Potassium 3.8 mmol/L (3.4-5.1); Sodium 138 mmol/L (137-145); Total Protein 7.2 g/dL (6.3-8.2)
[2024-08-30 11:03] LABS: Add Manual Diff / Slide Review NO; Basophils Absolute Auto 0 /uL (0-100); Basophils Percent Auto 0.4 % (0-2); Eosinophils Absolute Auto 0 /uL (0-450); Eosinophils Percent Auto 0.4 % (2-4); Hematocrit 43.3 % (36-46); Hemoglobin 14.5 g/dL (12.0-16.0); Lymphocytes Absolute Auto 700 /uL (1100-4500); Lymphocytes Percent Auto 8.4 % (25-40); Mean Corpuscular HGB Conc 33.4 % (30-36); Mean Corpuscular Hemoglobin 33.4 PG (26-34); Mean Corpuscular Volume 99.9 fL (80-100); Monocytes Absolute Auto 700 /uL (0-900); Monocytes Percent Auto 8.8 % (3-14); Neutrophils Absolute Auto 6700 /uL (1500-7000); Platelet Count 167 X10^3/uL (150-400); Red Blood Cell Count 4.34 X10^6/uL (4.0-5.2); Red Cell Distribution Width 13.5 % (11.6-14.8); White Blood Cell Count 8.2 X10^3/uL (4.5-11.0)
--- NOTE | 2024-08-30 11:07 | DI.CT.S_ITS ---
PROCEDURE: CT ABDOMEN PELVIS W CON INDICATIONS: diffuse abd pain w vomiting; no gallbladder TECHNIQUE: After the administration of intravenous contrast, axial sections acquired from the lung bases to the pubic symphysis. Coronal and sagittal reformats were performed. For radiation dose reduction, the following was used: automated exposure control, adjustment of mA and/or kV according to patient size. COMPARISON: None. FINDINGS: Image quality: Diagnostic. Lower Chest: No significant findings. ABDOMEN: Liver: No solid mass. Gallbladder: Surgically absent Biliary ducts: No biliary dilation. Pancreas: No ductal dilation. Spleen: Size is within normal limits. Adrenal Glands: No adrenal nodules. Kidneys and Ureters: No hydronephrosis. No solid mass. No complex renal cystic lesion which requires follow up. Nonobstructing left inferior pole 2-3 mm calculus. Stomach and Bowel: Normal colonic caliber, without significant wall thickening. Appendix is not definitively visualized, however there are no inflammatory changes in the right lower quadrant to suggest acute appendicitis. No significant diverticular disease. Peritoneum: No abnormal intraperitoneal fluid. No free air. Ventral Wall: No significant ventral hernia. Abdominal Nodes: No retroperitoneal or mesenteric adenopathy by size criteria. Vessels: Aorta and inferior vena cava are normal in size. PELVIS: Pelvic Organs: The left adnexal simple appearing cystic structure measuring 2.9 cm (2/123) Bladder: No bladder wall thickening, accounting for underdistention. Pelvic Nodes: No enlarged lymph nodes. Miscellaneous: No inguinal hernias are seen. Bones: No aggressive osseous abnormality. IMPRESSION: No acute process in the abdomen or pelvis to explain patient's symptoms. Additional findings as above. Approved by: Mary Mackenzie M.D.,Ph.D. on 08/30/2024 at 12:25
[2024-08-30 11:27] LABS: Creatine Kinase 79 U/L (30-135)
[2024-08-30] MEDS: ASPIRIN 81 MG CHEW TAB 324 MG PO (11:37)
[2024-08-30] MEDS: ONDANSETRON 4 MG/2 ML INJ IV (11:37)
[2024-08-30 11:40] LABS: Troponin I < 0.012 ng/mL (0.01-0.034)
--- NOTE | 2024-08-30 12:39 | PC.NURSE ---
iv placed by another nurse
[2024-08-30 12:42] LABS: Ammonia (NH3) < 9 umol/L (9-30)
--- NOTE | 2024-08-30 12:42 | DI.MRI.S_ITS ---
PROCEDURE: MR ABDOMEN WO/W CON INDICATIONS: N/V/Elevated LFTs; hx cholecystectomy 2002 TECHNIQUE: Coronal HASTE, axial 2D FLASH in- and [id number]; axial breath-hold T2 FSE. Dynamic axial VIBE during the administration of contrast; post-contrast coronal VIBE or 2D FLASH with fat saturation from the hepatic dome to the iliac crests. Optional diffusion weighted imaging and ADC may be performed. COMPARISON: [facility], CR, XR CHEST 1V, 08/30/2024, 11:02. [facility], CT, CT ABDOMEN PELVIS W CON, 08/30/2024, 11:37. FINDINGS: Image quality: This examination is limited by involuntary motion artifact. Lung bases: Unremarkable. Liver: No solid mass. No enhancing liver lesions are seen. The liver is enlarged, with the right liver measuring 24.5 cm craniocaudal. No significant loss of signal can be seen on the out of phase imaging compared to the in phase imaging. Gallbladder: Removed. Biliary ducts: The common bile duct measures 1 cm, which is considered to be within normal limits for a post cholecystectomy patient. The distal in the common bile duct demonstrates normal tapering, without a filling defect. Pancreas: No ductal dilation. Spleen: Size is within normal limits. Adrenal Glands: No adrenal nodules. Kidneys and Ureters: No hydronephrosis. No solid mass. No complex renal cystic lesion which requires follow up. Stomach and Bowel: Normal colonic caliber, without significant wall thickening. Peritoneum: No abnormal intraperitoneal fluid. No free air. Ventral Wall: No hernia. Abdominal Nodes: No retroperitoneal or mesenteric adenopathy by size criteria. Vessels: Aorta and inferior vena cava are normal in size. Bones: No aggressive osseous abnormality. Scattered foci are seen, which are hyperintense on T1-weighted and T2-weighted imaging, which are most consistent with benign vertebral body hemangiomas. IMPRESSION: Hepatomegaly, without significant additional liver abnormality. Status post cholecystectomy, without biliary dilatation. No filling defects are seen within the bile ducts. Dictated by: Juan Manrique M.D. on 08/30/2024 at 13:07 Approved by: Juan Manrique M.D. on 08/30/2024 at 13:11
[2024-08-30 12:54] LABS: Troponin I < 0.012 ng/mL (0.01-0.034)
== END 2024-08-30 15:35 | disposition home or self-care (01) ==
PROVIDERS: Emergency Medicine; Emergency Provider Physician Assistant; PCP Family Medicine
DX: R16.0 Hepatomegaly, not elsewhere classified (principal); R74.01 Elevation of levels of liver transaminase levels; N83.202 Unspecified ovarian cyst, left side; R11.2 Nausea with vomiting, unspecified; Z90.49 Acquired absence of other specified parts of digestive tract
CPT/HCPCS: 36415; 71045; 74177; 74183; 80053; 81003; 82140; 82550; 83690; 84484; 85025; 93005; 96374; 99285; A9579; J2405; Q9967